=== PATIENT | female | born 2005 | race Caucasian/White ===

== ENCOUNTER 2024-12-06 16:54 | Emergency (ER) | payer MEDICAID, OTHER ==
[~2024-12-06] VITALS: Ht 162.6 cm; Wt 73.0 kg
[2024-12-06 16:55] VITALS: BP 121/64; PULSE 89; TEMP 98.4
[2024-12-06] MEDS: ALBUTEROL SULF 2.5 MG/0.5ML(0.5%) NEB SOLN NEB ONE (17:25)
[2024-12-06] MEDS: IPRATROPIUM BROM 0.5 MG/2.5ML INH SOL NEB ONE (17:25)
[2024-12-06 17:26] VITALS: RESP 22; O2SAT 100
--- NOTE | 2024-12-06 18:00 | ED.PDOC ---
History of Present Illness HPI Comments 19F presents to the ER w/ prior MHx of asthma and the c/c of SOB. Pt reports on having SOB for 4 days and using her inhaler at home which were not helping and went to ER at [facility] yesterday and was given a Breathing Trx and a shot, for which the pt felt better until she went to work today and the symptoms started to flare up again. Denies chills, fever, N/V/D, CP. Denies any other associated symptom's, modifiers, or recent injuries or sick contact at this time. Chief Complaint: Asthma Time Seen by MD: 18:00 Reviewed Notes: Nurses Notes, Medications, Allergies Allergies: Coded Allergies: Penicillins (Verified Allergy, Mild, 12/06/24) Home Meds Active Scripts Potassium Chloride (POTASSIUM CHLORIDE CR) 10 Meq Tb, 1 TAB PO DAILY, #15 TAB 5 Refills Prov:REUBEN CORTEZ MD 12/06/24 Methylprednisolone (Medrol Dosepak) 4 Mg Cruz, 4 MG PO UD, #21 TAB UAD Prov:REUBEN CORTEZ MD 12/06/24 Information Source: Patient Mode of Arrival: Ambulatory Severity: Moderate Timing: Days Duration: Since onset, Days Prehospital treatment: None Past Medical History PAST MEDICAL HISTORY: Asthma Surgical History: Denies all surgeries [employer] History: No Pertinent [employer] History Family History Family History: Reviewed,noncontributory to illness, Unknown Social History Smoker: Non-Smoker Alcohol: Denies ETOH Use Drugs: Denies Drug Use Lives In: Home Constitutional: denies: chills, diaphoresis, fatigue, fever, malaise, sweats, weakness, others EENTM: denies: blurred vision, double vision, ear bleeding, ear discharge, ear drainage, ear pain, ear ringing, eye pain, eye redness, hearing loss, mouth pain, mouth swelling, nasal discharge, nose bleeding, nose congestion, nose pain, photophobia, tearing, throat pain, throat swelling, voice changes, others Respiratory: reports: shortness of breath, wheezing; denies: cough, hemoptysis, orthopnea, SOB at rest, SOB with excertion, stridor, others Cardiovascular: denies: chest pain, dizzy spells, diaphoresis, Dyspnea on exertion, edema, irregular heart beat, left arm pain, lightheadedness, palpitations, PND, syncope, others Gastrointestinal: denies: abdomen distended, abdominal pain, blood streaked bowels, constipated, diarrhea, dysphagia, difficulty swallowing, hematemesis, melena, nausea, poor appetite, poor fluid intake, rectal bleeding, rectal pain, vomiting, others Genitourinary: denies: abnormal vagina bleeding, burning, dyspareunia, dysuria, flank pain, frequency, hematuria, incontinence, pain, , vagina disch arge, urgency, others Neurological: denies: dizziness, fainting, headache, left sided numbness, left sided weakness, numbness, paresthesia, pre-existing deficit, right sided numbness, right sided weakness, seizure, speech problems, tingling, tremors, weakness, others Musculoskeletal: denies: back pain, gout, joint pain, joint swelling, muscle pain, muscle stiffness, neck pain, others Integumetry: denies: bruises, change in color, change in hair/nails, dryness, laceration, lesions, lumps, rash, wounds, others Allergic/Immunocompromised: denies: Difficulty Healing, Frequent Infections, Hives, Itching, others Hematologic/Lymphatic: denies: anemia, blood clots, easy bleeding, easy bruising, swollen glands, others Endocrine: denies: excessive hunger, excessive sweating, excessive thirst, excessive urination, flushing, intolerance to cold, intolerance to heat, unexplained weight gain, unexplained weight loss, others Psychiatric: denies: anxiety, bipolar disorder, depression, hopeless, panic disorder, schizophrenia, sleepless, suicidal, others All Other Systems: Reviewed and Negative Physical Exam General Appearance: Moderate Distress HEENT: Normal ENT Inspection, Pharynx Normal, TMs Normal Neck: Full Range of Motion, Non-Tender, Normal, Normal Inspection Respiratory: Chest Non-Tender, Decreased Breath Sounds, No Accessory Muscle Use, Wheezing Cardiovascular: No Edema, No JVD, No Murmur, No Gallop, Normal Peripheral Pulses, Regular Rate/Rhythm Breast Exam: Deferred Gastrointestinal: No Organomegaly, Non Tender, No Pulsatile Mass, Normal Bowel Sounds, Soft Genitalia: Deferred Pelvic: Deferred Rectal: Deferred Extremities: No calf tenderness, Normal capillary refill, Normal inspection, Normal range of motion, Non-tender, No pedal edema Musculoskeletal : Apperance: Normal Neurologic: Alert, recovery agent II-XII nml as Tested, No Motor Deficits, Normal Affect, Normal Mood, No Sensory Deficits Cerebellar Function: Normal Reflexes: Normal Skin: Dry, Normal Color, Warm Lymphatic: No Adenopathy Was a procedure done? Was a procedure done?: No Differential Dx Considerations may include: BRONCHITIS, PNEUMONIA, GENERALIZED WEAKNESS, ELECTROLYTE IMBALANCE X-Ray, Labs, Meds, VS Vital Signs Date Time Temp Pulse Resp B/P (MAP) Pulse Ox O2 Delivery O2 Flow Rate FiO2 12/06/24 17:26 22 100 Room Air* 0 21 12/06/24 16:55 98.4 89 20 121/64 95 98.4 Lab Test 12/06/24 18:12 Range/Units White Blood Count 13.3 H 4.4-10.8 10^3/uL Red Blood Count 4.46 4.0-5.20 10^6/uL Hemoglobin 13.3 12.2-16.2 g/dL Hematocrit 38.9 36.0-46.0 % Mean Corpuscular Volume 87.3 80.0-100.0 fL Mean Corpuscular Hemoglobin 29.9 28.0-32.0 pg Mean Corpuscular Hemoglobin Concent 34.2 32.0-36.0 g/dL Red Cell Distribution Width 13.1 11.8-14.3 % Platelet Count 263 140-450 10^3/uL Mean Platelet Volume 9.3 6.9-10.8 fL Neutrophils (%) (Auto) 89.9 H 37.0-80.0 % Lymphocytes (%) (Auto) 5.4 L 10.0-50.0 % Monocytes (%) (Auto) 4.6 0.0-12.0 % Eosinophils (%) (Auto) 0.0 0.0-7.0 % Basophils (%) (Auto) 0.1 0.0-2.0 % Neutrophils # (Auto) 12.0 H 1.6-8.6 10 ^3/uL Lymphocytes # (Auto) 0.7 0.4-5.4 10 ^3/uL Monocytes # (Auto) 0.6 0-1.3 10 ^3/uL Eosinophils # (Auto) 0 0-0.8 10 ^3/uL Basophils # (Auto) 0 0-0.2 10 ^3/uL Nucleated Red Blood Cells 0.0 % Sodium Level 142 136-145 mmol/L Potassium Level 2.9 L 3.5-5.1 mmol/L Chloride Level 109 H 98-107 mmol/L Carbon Dioxide Level 18 L 20-31 mmol/L Anion Gap 15 5-15 Blood Urea Nitrogen 11 9-23 mg/dL Creatinine 0.83 0.550-1.02 mg/dL Glomerular Filtration Rate Calc 103 >90 mL/min BUN/Creatinine Ratio 13.3 10.0-20.0 Serum Glucose 142 H 74-106 mg/dL Calcium Level 9.2 8.7-10.4 mg/dL Current Medications Medications (Trade) Dose Ordered Sig/Lidia Route Start Time Stop Time Status Last Admin Albuterol (Ventolin Medneb) 10 mg ONCE ONCE NEB 12/06/24 17:00 12/06/24 17:01 DC 12/06/24 17:25 Ipratropium [place] (Atrovent Medneb) 1 mg ONCE ONCE NEB 12/06/24 17:00 12/06/24 17:01 DC 12/06/24 17:25 Methylprednisolone Sodium Succinate (Solu Medrol) 125 mg ONCE ONCE IV 12/06/24 18:00 12/06/24 18:01 DC 12/06/24 18:41 The chest x-ray is negative. The patient was given a continuous breathing treatment of albuterol and Atrovent. The patient was given Solu-Medrol 125 mg IV push The chemistry panel shows hypokalemia so was given potassium 40 mEq p.o.. The patient was also given a prescription of potassium The patient will follow up with the primary care doctor The patient was given a Medrol Dosepak. The patient understands and agrees with the management. Images Reviewed?: Images reviewed and evaluated by me Time of 1ST Reevaluation: 18:30 Reevaluation 1ST: Unchanged Time of 2ND Reevaluation: 19:29 Reevaluation 2ND: Improved Patient Education/Counseling: Diagnosis, Treatment, Prognosis, Need For Follow Up Family Education/Counseling: No Family Present SEPSIS Sepsis Screen Date sepsis recognized/suspect: Dec 06, 2024 Time Sepsis recognized/suspect: 1655 Recent Procedure: No On Antibiotic Therapy: No Respiratory Rate >20: No Heart Rate >90: No Temp<36 C (96.8 F) or >38.3 C: No SBP <90 or MAP <65 mmHG: No New Acute Mental Status Change: No Is the patient on CPAP, BIPAP,: No Physician Orders Heplock Iv (12/06/24 17:55) Pulse Oximetry (12/06/24 17:55) Color Blender (12/06/24 17:55) Blood Pressure (12/06/24 17:55) Chest Two Views Routine (12/06/24 17:55) Vital Signs Date Time Temp Pulse Resp B/P (MAP) Pulse Ox O2 Delivery O2 Flow Rate FiO2 12/06/24 17:26 22 100 Room Air* 0 21 12/06/24 16:55 98.4 89 20 121/64 95 98.4 Laboratory Tests Test 12/06/24 18:12 White Blood Count 13.3 10^3/uL (4.4-10.8) H Medications Medications Dose Ordered Sig/Lidia Route Start Time Stop Time Status Last Admin Dose Admin Albuterol 10 mg ONCE ONCE NEB 12/06/24 17:00 12/06/24 17:01 DC 12/06/24 17:25 Ipratropium [place] 1 mg ONCE ONCE NEB 12/06/24 17:00 12/06/24 17:01 DC 12/06/24 17:25 Methylprednisolone Sodium Succinate 125 mg ONCE ONCE IV 12/06/24 18:00 12/06/24 18:01 DC 12/06/24 18:41 Departure 1 Departure Time of Disposition: 19:28 Impression: Primary Impression: Asthma exacerbation Qualified Codes: J45.901 - Unspecified asthma with (acute) exacerbation Disposition: 01 HOME / SELF CARE / HOMELESS Condition: Fair e-Prescriptions Potassium Chloride (POTASSIUM CHLORIDE CR) 10 Meq Tb 1 TAB PO DAILY, #15 TAB 5 Refills Prov: REUBEN CORTEZ MD 12/06/24 Methylprednisolone (Medrol Dosepak) 4 Mg Cruz 4 MG PO UD, #21 TAB UAD Prov: REUBEN CORTEZ MD 12/06/24 Discharged With: Self Critical Care Note Critical Care Time?: No Stability Stability form required: No Heart Score Heart Score: Heart Score Response (Comments) Value History N/A 0 EKG N/A 0 Age N/A 0 Risk Factors N/A 0 Troponin N/A 0 Total 0 I personally scribed for REUBEN CORTEZ MD ([email or web address]) on 12/06/24 at 17:59. Electronically submitted by Jesus Membreno ([email or web address]). REUBEN CORTEZ MD Dec 06, 2024 17:59
[2024-12-06 18:37] LABS: Hematocrit 38.9 % (36.0-46.0); Hemoglobin 13.3 g/dL (12.2-16.2); Mean Corpuscular Hemoglobin 29.9 pg (28.0-32.0); Mean Corpuscular Volume 87.3 fL (80.0-100.0); Nucleated Red Blood Cells % 0.0 %
[2024-12-06 18:40] LABS: Sodium 142 mmol/L (136-145)
[2024-12-06 18:41] LABS: Anion Gap 15 (5-15)
[2024-12-06] MEDS: methylPREDNISolone SOD SUCC 125 MG/2 ML VL IV ONE (18:41)
[2024-12-06 18:42] LABS: Calcium 9.2 mg/dL (8.7-10.4)
[2024-12-06 18:47] LABS: BUN/Creatinine Ratio 13.3 (10.0-20.0); Blood Urea Nitrogen 11 mg/dL (9-23)
[2024-12-06 18:48] LABS: Carbon Dioxide 18 mmol/L (20-31); Chloride 109 mmol/L (98-107); Glucose 142 mg/dL (74-106); Potassium 2.9 mmol/L (3.5-5.1)
--- NOTE | 2024-12-06 18:58 | DVH ---
XY CHEST TWO VIEWS ROUTINE INDICATION: sob TECHNIQUE: Two views of the chest COMPARISON: None FINDINGS/IMPRESSION: LUNGS: No pleural effusion, consolidation, or pneumothorax MEDIASTINUM: Unremarkable BONES: No acute osseous abnormality OTHER: None
[2024-12-06] MEDS ORDERED: METH4PAK PO (19:27)
[2024-12-06] MEDS ORDERED: POTA-36 PO (19:31)
== END 2024-12-06 20:11 | disposition home or self-care (01) ==
LOC: ER 16:54
DX: J45.901 Unspecified asthma with (acute) exacerbation (principal); Z79.899 Other long term (current) drug therapy; Z88.0 Allergy status to penicillin
CPT/HCPCS: 36415; 71046; 80048; 85025; 94644; 96374; 99285; J2919